=== PATIENT | male | born 1960 | race Caucasian/White ===

== ENCOUNTER 2016-11-24 11:43 | Outpatient (CLI) | payer OTHER ==
[2016-03-14 23:30] VITALS: BP 122/68
[2016-11-24 12:41] LABS: eGFR (African) > 60; eGFR (Non-African) > 60
== END 2016-11-24 11:44 ==
LOC: LAB 11:43
PROVIDERS: ATTEND Physician Assistant
DX: I10 Essential (primary) hypertension (principal); Z13.6 Encounter for screening for cardiovascular disorders
CPT/HCPCS: 36415; 80053; 80061

== ENCOUNTER 2018-09-30 07:44 | Day surgery (SDC) | payer OTHER ==
[2016-03-14 23:30] VITALS: BP 122/68
[2018-09-30] MEDS ORDERED: LACTATED RINGERS 1,000 ML IV.SOLN IV ONE (08:48)
[2018-09-30] MEDS ORDERED: PROPOFOL 200 MG/20 ML VIAL IV ONE (08:48)
--- NOTE | 2018-09-30 13:30 | GI Report ---
REFERRING PHYSICIAN: Dr. Regan Maier GLOBAL TRANSPORTATION MANAGER: Elan Powell MD PROCEDURE MEDICATION: Propofol as per anesthesia. INDICATIONS: This 57-year-old man is referred for a colonoscopy. He had one about 6 years ago but the prep was poor and because I had concerns of missing small polyps, he was referred for coming in to have a colonoscopy. He denies obvious change in bowel habits or bleeding or a family history. So, he is coming back sooner because of inadequate prep last time. PROCEDURE PERFORMED: Colonoscopy with polypectomy. PROCEDURE: An Olympus video colonoscope was advanced to the rectum. A very atonic redundant colon. We were finally able to get to the cecum. We did have to lavage. The prep, again, was not great. The appendiceal orifice and ileocecal valve were normal. On slow withdrawal, the cecum and ascending colon with no obvious intraluminal lesions noted. In the transverse colon at 75 cm, the patient had a 4 mm sessile polyp removed with electrocautery. The descending colon and sigmoid with some redundancy, no additional lesions noted, though again, it was not a perfect prep. Retroflexion of the rectum was normal. Patient tolerated the procedure well. FINDINGS: 1. Polyp removed from the transverse colon. 2. Again, only a fair prep. RECOMMENDATIONS: 1. Pending the pathology of the polyp, would have his colon re-looked at again in 5 years. 2. Next time he needs to be on a 2-day prep. 3. Follow up with Dr. Maier's office. Dr. Regan HUTCHINSON
== END 2018-09-30 11:02 | disposition home or self-care (01) ==
LOC: OPSURG 07:44
PROVIDERS: ATTEND Internal Medicine Gastroenterology
DX: Z12.11 Encounter for screening for malignant neoplasm of colon (principal); D12.3 Benign neoplasm of transverse colon
CPT/HCPCS: 45384; J2704; J7120; S1016

== ENCOUNTER 2018-10-04 13:54 | Outpatient (CLI) | payer OTHER ==
[2016-03-14 23:30] VITALS: BP 122/68
[2018-10-04 14:41] LABS: eGFR (Non-African) > 60
== END 2018-10-04 14:05 ==
LOC: LAB 13:54
PROVIDERS: ATTEND Nurse Practitioner Family
DX: I10 Essential (primary) hypertension (principal)
CPT/HCPCS: 36415; 80053; 80061; 84153